=== PATIENT | male | born 1945 | race Caucasian/White ===

== ENCOUNTER 2025-06-10 09:53 | Emergency (ER) | payer SELFPAY ==
[~2025-06-10] VITALS: Ht 162.6 cm; Wt 58.0 kg
[2025-06-10 09:56] VITALS: TEMP 36.8; O2SAT 96
[2025-06-10 10:24] LABS: BASOPHILS % 0.8 % (0.0-2.0); EOSINOPHILS % 8.1 % (0.0-5.0); HEMATOCRIT. 23.5 % (42.0-52.0); HEMOGLOBIN. 8.3 g/dL (14.0-18.0); LYMPHOCYTES % 25.5 % (20.0-50.0); MEAN PLATELET VOLUME 7.2 fl (7.4-10.4); MONOCYTES % 5.2 % (2.0-8.0); NEUTROPHILS % 60.4 % (40.0-76.0); PLATELET 229 x1000/uL (130-400); RED BLOOD CELL COUNT 1.85 mill/uL (4.7-6.1); RED CELL DISTRIBUTION WIDTH 16.6 % (11.6-14.6)
[2025-06-10 10:33] LABS: CREATININE 1.0 mg/dL (0.6-1.3); UREA NITROGEN BLOOD 14 mg/dL (9-23)
[2025-06-10 10:34] LABS: ADD RBC MORPHOLOGY YES
[2025-06-10 11:08] VITALS: BP 111/72; PULSE 66; RESP 18; O2SAT 96
[2025-06-10 11:26] LABS: PLATELET ESTIMATE NORMAL
== END 2025-06-10 11:09 | disposition home or self-care (01) ==
LOC: ER 09:53
DX: D64.9 Anemia, unspecified (principal); Z55.6 Problems related to health literacy; Z79.899 Other long term (current) drug therapy
CPT/HCPCS: 36415; 80048; 85025; 86850; 86900; 93005; 99284